=== PATIENT | female | born 1985 | race Caucasian/White ===

== ENCOUNTER 2017-05-22 19:11 | Emergency (ER) | payer BC, MEDICAID ==
[~2017-05-22] VITALS: Ht 154.9 cm; Wt 79.9 kg
[~2017-05-22 19:11] MED LIST: ACHD5005 PO; FERR-57; FERR325T74 PO; IBP600T1 PO; NORE1TAB40 PO; PREN1TAB14 PO; PREN1TAB39
[2017-05-22] MEDS ORDERED: LISD30CA3 (20:17)
[2017-05-22] MEDS ORDERED: IBUPROFEN 800 MG (MOTRIN) TAB PO STA (21:41)
--- NOTE | 2017-05-22 21:46 | ED Syncope ---
General Chief Complaint: Dizziness/Syncope Stated Complaint: PAST OUT DIZZY INJ HEAD Nursing Triage Note: patient reports passing out shortly after 1800 today. patient reports having history of passing out before. patient denies n/v/d or vision changes. patient reports headache after hitting head. patient ambulated independently. patient reports having sinus issues recenlty Source of Information: Patient, Spouse Exam Limitations: No Limitations History of Present Illness Time Seen by Provider: 21:33 Initial Comments Patient was ER by private conveyance with a primary complaint of just around 6: 00 this evening she was walking into the kitchen not feeling well recently had a head cold with rhinorrhea and stuffed up nose and ears and she was looking at her phone and had a frontal headache. She put her head and her front of her head and then promptly fell backwards landing against the door than the floor hitting the back of her head. She was unconscious for less than a minute according to her spouse who witnessed the fall. She says this happened before about 5 years ago and she was worked up and told it was something to do with her blood pressure but should really understand that they had completely good explanation at the time. Patient had no nausea, blurry vision, double vision, for the headache. She is not taking anything for the pain in her head. She feels a small goose egg on the back of her left occiput. She is able walk in to the ER. Loss of Consciousness: Brief (Seconds) Allergies and Home Medications Allergies Coded Allergies: No Known Drug Allergies (Verified , 10/27/07) Home Medications Lisdexamfetamine Dimesylate 30 Mg Capsule, (Reported) Constitutional: No chills, No diaphoresis EENTM: blurred vision (just prior to fall), No ear discharge, No ear pain, No double vision Respiratory: No cough, No short of breath Cardiovascular: No chest pain, No Hx of Intervention, No palpitations Gastrointestinal: No abdominal pain, No constipation, No diarrhea, No nausea, No vomiting Genitourinary: No discharge, No dysuria, No frequency : No Control/STD Prophylaxis: Other (implanon) Musculoskeletal: No back pain, No joint pain Skin: No pruritus, No rash Psychiatric/Neurological: Denies Headache, Denies Numbness, Denies Paresthesia Past [place] Hx Patient Social History Alcohol Use: Denies Use Recreational Drug Use: No Smoking Status: Never a Smoker Recent Foreign Travel: No Contact w/Someone Who Travel: No Recent Infectious Disease Expo: No Immunizations Up To Date Tetanus Booster (TDap): Unknown PED Vaccines UTD: Yes Reproductive System Hx Reproductive Disorders: No Sexually Transmitted Disease: No HIV/AIDS: No Female Reproductive Disorders: Pelvic Inflammatory Dis HEENT Loss of Vision: Bilateral Hearing Impairment: Denies Blood Transfusions Adverse Reaction to a Blood Tr: No (2007) Physical Exam Vital Signs Vital Sign - Last 12Hours 05/22/17 20:14 Temp 98.2 Pulse 76 Resp 18 B/P (MAP) 122/83 Pulse Ox 98 Capillary Refill : Less Than 3 Seconds General Appearance: No Apparent Distress, WD/WN HEENT: PERRL/EOMI, Pharyngeal Erythema, Tonsillar Enlargement, Other (nasal congestion and clear effusion bilateral TMs) Neck: Full Range of Motion, Normal Inspection, Non Tender, Supple Cardiovascular: Regular Rate, Rhythm, No Edema, No Murmur, Normal Peripheral Pulses Respiratory: Chest Non Tender, Lungs Clear, Normal Breath Sounds Gastrointestinal: Normal Bowel Sounds, No Organomegaly, Non Tender, Soft Back: Normal Inspection, No CVA Tenderness, No Vertebral Tenderness Extremities: Normal Capillary Refill, Normal Inspection, No Calf Tenderness Neurologic/Psychiatric: Alert, Oriented x3, No Motor/Sensory Deficits, Normal 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, 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 Norm as Tested Cranial Nerves: Normal Hearing, Normal Speech, PERRL Coordination/Gait: Normal Gait, Negative Romberg's Sign Motor/Sensory: No Motor Deficit, No Sensory Deficit Skin: Normal Color, Warm/Dry Lymphatic: No Adenopathy Progress/Results/Core Measures Results/Orders Lab Results Laboratory Tests Test 05/22/17 21:39 05/22/17 21:44 Range/Units Urine Color YELLOW Urine Clarity CLEAR Urine pH 6.5 5-9 Urine Specific [place] 1.010 L 1.016-1.022 Urine Protein NEGATIVE NEGATIVE Urine Glucose (UA) NEGATIVE NEGATIVE Urine Ketones NEGATIVE NEGATIVE Urine Nitrite NEGATIVE NEGATIVE Urine Bilirubin NEGATIVE NEGATIVE Urine Urobilinogen NORMAL NORMAL MG/DL Urine Leukocyte Esterase NEGATIVE NEGATIVE Urine RBC (Auto) 2+ H NEGATIVE Urine RBC 0-2 /HPF Urine WBC 0-2 /HPF Urine Squamous Epithelial Cells 2-5 /HPF Urine Crystals NONE /LPF Urine Bacteria TRACE /HPF Urine Casts NONE /LPF Urine Mucus NEGATIVE /LPF Urine Culture Indicated NO Urine Test NEGATIVE NEGATIVE Urine Opiates Screen NEGATIVE NEGATIVE Urine Oxycodone Screen NEGATIVE NEGATIVE Urine Methadone Screen NEGATIVE NEGATIVE Urine Propoxyphene Screen NEGATIVE NEGATIVE Urine Barbiturates Screen NEGATIVE NEGATIVE Ur Tricyclic Antidepressants Screen NEGATIVE NEGATIVE Urine Phencyclidine Screen NEGATIVE NEGATIVE Urine Amphetamines Screen POSITIVE H NEGATIVE Urine Methamphetamines Screen NEGATIVE NEGATIVE Urine Benzodiazepines Screen NEGATIVE NEGATIVE Urine Cocaine Screen NEGATIVE NEGATIVE Urine Cannabinoids Screen NEGATIVE NEGATIVE White Blood Count 6.5 4.3-11.0 10^3/uL Red Blood Count 4.67 4.35-5.85 10^6/uL Hemoglobin 13.5 11.5-16.0 G/DL Hematocrit 39 35-52 % Mean Corpuscular Volume 84 80-99 FL Mean Corpuscular Hemoglobin 29 25-34 PG Mean Corpuscular Hemoglobin Concent 34 32-36 G/DL Red Cell Distribution Width 12.2 10.0-14.5 % Platelet Count 226 130-400 10^3/uL Mean Platelet Volume 11.7 H 7.4-10.4 FL Neutrophils (%) (Auto) 71 42-75 % Lymphocytes (%) (Auto) 21 12-44 % Monocytes (%) (Auto) 6 0-12 % Eosinophils (%) (Auto) 2 0-10 % Basophils (%) (Auto) 0 0-10 % Neutrophils # (Auto) 4.6 1.8-7.8 X 10^3 Lymphocytes # (Auto) 1.4 1.0-4.0 X 10^3 Monocytes # (Auto) 0.4 0.0-1.0 X 10^3 Eosinophils # (Auto) 0.1 0.0-0.3 10^3/uL Basophils # (Auto) 0.0 0.0-0.1 10^3/uL Sodium Level 141 135-145 MMOL/L Potassium Level 4.1 3.6-5.0 MMOL/L Chloride Level 106 98-107 MMOL/L Carbon Dioxide Level 24 21-32 MMOL/L Anion Gap 11 5-14 MMOL/L Blood Urea Nitrogen 11 7-18 MG/DL Creatinine 0.62 0.60-1.30 MG/DL Estimat Glomerular Filtration Rate > 60 BUN/Creatinine Ratio 18 Glucose Level 90 70-105 MG/DL Calcium Level 9.5 8.5-10.1 MG/DL Magnesium Level 2.0 1.8-2.4 MG/DL Total Bilirubin 1.0 0.1-1.0 MG/DL Aspartate Amino Transf (AST/SGOT) 19 5-34 U/L Alanine Aminotransferase (ALT/SGPT) 22 0-55 U/L Alkaline Phosphatase 76 40-136 U/L Total Protein 7.0 6.4-8.2 GM/DL Albumin 4.1 3.2-4.5 GM/DL Serum Alcohol < 10 <10 MG/DL My Orders Orders - ROMYNANCY Alcohol (05/22/17 21:41) Cbc With Automated Diff (05/22/17 21:41) Comprehensive Metabolic Panel (05/22/17 21:41) Drug Screen Stat (Urine) (05/22/17 21:41) Hcg,Qualitative Urine (05/22/17 21:41) Magnesium (05/22/17 21:41) Ua Culture If Indicated (05/22/17 21:41) Chest Pa/Lat (2 View) (05/22/17 21:41) Ibuprofen Tablet (Motrin Tablet) (05/22/17 21:41) Vital Signs/I&O Vital Sign - Last 12Hours 05/22/17 05/22/17 20:14 22:23 Temp 98.2 Pulse 76 74 69 85 Resp 18 B/P (MAP) 122/83 Pulse Ox 98 Blood Pressure Mean: 96 Progress Note : Time: 22:51 Progress Note Consistent with vasovagal syncope which would be aggravated by her use of amphetamines as well as her viral URI. The orthostatic vitals were almost positive but not quite. Patient's tolerating by mouth's and O, do that. Diagnostic Imaging Diagonstic Imaging: Xray Plain Films/CT/US/NM/MRI: chest Comments No acute cardiopulmonary processes Reviewed: Reviewed by Me Departure Impression Impression: Primary Impression: URI (upper respiratory infection) Qualified Codes: J06.9 - Acute upper respiratory infection, unspecified; B97.89 - Other viral agents as the cause of diseases classified elsewhere Additional Impression: Syncope Qualified Codes: R55 - Syncope and collapse Disposition: 01 HOME, SELF-CARE Condition: Stable Departure-Patient Inst. Decision time for Depature: 22:53 Referrals: LAWSON WARREN DO (PCP) Primary Care Physician Patient Instructions: Syncope (Fainting) (DC) Add. Discharge Instructions: Drink copious amounts of fluids to get your system think back up. If you continue to have the symptoms should follow-up with her primary care physician. You can get some Flonase [id number] and apply 1 spray to each nostril twice a day for the next couple weeks to help. Nose out. You can also use loratadine or Claritin or Zyrtec to help with your urinary symptoms. When you' re getting up from a seated or lying position make sure you stand for a few seconds before taking off to help reduce her risk of recurrent passing out. All discharge instructions reviewed with patient and/or family. Voiced understanding. Copy Copies To 1: LAWSON WARREN TITUS J May 22, 2017 21:46
[2017-05-22 21:49] LABS: BILIRUBIN,URINE NEGATIVE (NEGATIVE); KETONES,URINE NEGATIVE (NEGATIVE); LEUKOCYTE ESTERASE ,URINE NEGATIVE (NEGATIVE); NITRITE,URINE NEGATIVE (NEGATIVE); PH,URINE 6.5 (5-9); PROTEIN,URINE NEGATIVE (NEGATIVE); UROBILINOGEN,URINE NORMAL (NORMAL)
[2017-05-22 21:54] LABS: BASOPHILS % (AUTO) 0 % (0-10); EOSINOPHILS # (AUTO) 0.1 10^3/uL (0.0-0.3); EOSINOPHILS % (AUTO) 2 % (0-10); LYMPHOCYTES # (AUTO) 1.4 X 10^3 (1.0-4.0); LYMPHOCYTES % (AUTO) 21 % (12-44); MEAN CORPUSCULAR HEMOGLOBIN 29 PG (25-34); MEAN CORPUSCULAR HGB CONC 34 G/DL (32-36); MEAN CORPUSCULAR VOLUME 84 FL (80-99); MEAN PLATELET VOLUME 11.7 FL (7.4-10.4); MONOCYTES # (AUTO) 0.4 X 10^3 (0.0-1.0); MONOCYTES % (AUTO) 6 % (0-12); NEUTROPHILS # (AUTO) 4.6 X 10^3 (1.8-7.8); NEUTROPHILS % (AUTO) 71 % (42-75); PLATELET COUNT 226 10^3/uL (130-400); RED BLOOD COUNT 4.67 10^6/uL (4.35-5.85); RED CELL DISTRIBUTION WIDTH 12.2 % (10.0-14.5); WHITE BLOOD COUNT 6.5 10^3/uL (4.3-11.0)
[2017-05-22 22:00] LABS: WBC,URINE 0-2 /HPF
[2017-05-22 22:15] LABS: ALANINE AMINOTRANSFERASE 22 U/L (0-55); ALBUMIN 4.1 GM/DL (3.2-4.5); ALCOHOL < 10 MG/DL (<10); ANION GAP 11 MMOL/L (5-14); ASPARTATE AMINO TRANSFERASE 19 U/L (5-34); BLOOD UREA NITROGEN 11 MG/DL (7-18); BUN/CREATININE RATIO 18; CALCIUM 9.5 MG/DL (8.5-10.1); CARBON DIOXIDE 24 MMOL/L (21-32); CHLORIDE 106 MMOL/L (98-107); CREATININE SERUM 0.62 MG/DL (0.60-1.30); GFR ESTIMATED > 60; GLUCOSE 90 MG/DL (70-105); POTASSIUM 4.1 MMOL/L (3.6-5.0); SODIUM 141 MMOL/L (135-145)
[2017-05-22 23:13] VITALS: BP 124/87
--- NOTE | 2017-05-23 08:18 | Diagnostic Imaging Report ---
INDICATION: Syncope. Trauma to the head. COMPARISON: None FINDINGS: Frontal and lateral views of the chest demonstrate normal heart size and pulmonary vascularity. The lungs are clear. There are no signs of infiltrate, pleural effusions or pneumothoraces. The visualized osseous structures show no acute abnormalities. IMPRESSION: 1. No acute process. No signs of infiltrates, effusions or pneumothoraces. Dictated by: Dictated on workstation # [id number]
--- OUTSIDE RECORDS SUMMARY | 2017-05-23 12:05 | XMS REPORT | Continuity of Care Document ---
Author Author [facility] Organization [facility] Address Unknown Phone Unavailable Allergies Medications Problems Date Dx Coded Attending Type Code Diagnosis Diagnosed By 05/29/2014 LAICE SEBASTIAN APRN 625.9 PELVIC PAIN 05/29/2014 ALICE SEBASTIAN APRN V74.5 STD SCREEN 05/29/2014 ALICE SEBASTIAN APRN 625.9 PELVIC PAIN 05/29/2014 ALICE SEBASTIAN APRN V74.5 STD SCREEN 07/01/2014 ALICE SEBASTIAN APRN 690.10 SEBORRHEIC DERMATITIS UNSPECIFIED 07/01/2014 ALICE SEBASTIAN APRN 787.02 NAUSEA ALONE 07/01/2014 ALICE SEBASTIAN APRN 789.00 ABDOMINAL PAIN UNSPECIFIED SITE Procedures Code [place] [address] CULTURE UROGENITAL 05/29/2014 74705 GC/CHLAM PROBE (STATE) 05/29/2014 94737 UA W/ CULTURE IF INDICATED 05/29/2014 71966 TEST, URINE (IN-HOUSE) 05/29/2014 90550 TRICHOMONAS (IN-HOUSE) 05/29/2014 85902 ROUTINE VENIPUNCTURE 07/01/2014 [id number] GFR CALC (RESULT ONLY) 07/01/2014 39826 CMP 07/01/2014 Results Encounters ACCT No. Visit Date/Time Discharge Status Pt. Type Provider Facility Loc./Unit Complaint [id number] 02/13/2013 08:02:00 2012 18:25:00 DIS Inpatient [id number] 02/07/2013 11:54:00 2012 23:59:59 CLS Outpatient [id number] 07/01/2014 10:47:00 07/01/2014 23: 59:59 CLS Outpatient ALICE SEBASTIAN APRN [id number] 05/29/2014 10:25:00 05/29/2014 23: 59:59 CLS Outpatient ALICE SEBASTIAN APRN
== END 2017-05-22 23:12 | disposition home or self-care (01) ==
LOC: EDUNIT# 19:11 → ER 19:14
DX: J06.9 Acute upper respiratory infection, unspecified (principal); R55 Syncope and collapse
CPT/HCPCS: 36415; 71020; 80053; 80306; 80320; 81000; 83735; 84703; 85025; 99283

== ENCOUNTER → 2020-07-07 | Outpatient (CLI) | payer BC ==
[~2020-07-07] MED LIST changes: +LISD30CA3
--- NOTE | 2020-07-07 11:24 | Diagnostic Imaging Report ---
Indication: Right shoulder pain. Time of exam: 11:04 AM 3 views of the right shoulder were obtained. Glenohumeral and acromioclavicular alignment are normal. Acromiohumeral space is normal. No fracture or dislocation is seen. Impression: No acute bony abnormality is detected. Dictated by: Dictated on workstation # [id number]
== END ==
LOC: RAD 10:44
PROVIDERS: ATTEND Nurse Practitioner Family
DX: M25.511 Pain in right shoulder (principal)
CPT/HCPCS: 73030

== ENCOUNTER → 2020-07-14 | Outpatient (CLI) | payer BC ==
[~2020-07-14] VITALS: Ht 157.5 cm; Wt 105.5 kg
[~2020-07-14] MED LIST changes: +GADOBUTROL 7.5 MMOL/7.5 ML (GADAVIST) VIAL IV ONE; +IOHEXOL 300 MG/ML 50 ML (OMNIPAQUE 300) VIAL IV ONE
--- NOTE | 2020-07-14 12:03 | Diagnostic Imaging Report ---
PROCEDURE: MRI upper extremity any joint with contrast right. TECHNIQUE: Multiplanar, multisequence contrast-enhanced MRI of the right upper extremity was accomplished. INDICATION: Right shoulder pain after throwing axis. Superior glenoid labrum lesion. COMPARISON: Radiographs from 07/07/2020 FINDINGS: No acute fracture is seen in the right shoulder. There is motion artifact on multiple sequences, resulting in suboptimal evaluation. There is contrast in the joint, with capsule disruption at the posterior axillary pouch as well as along the subscapularis. Minimal backflow of contrast is seen in the anterior soft tissues. The supraspinatus, infraspinatus, subscapularis, and teres minor tendons appear intact. There is no muscular atrophy. The long head of the biceps tendon is normal in course and signal. There is irregular signal concerning for a small tear at the superior glenoid labrum which appears to extend anteriorly (image 8 series 7 and image 12 series 3). No para labral cyst is seen. There are mild degenerative changes in the acromioclavicular joint. The acromion has a curved undersurface. The coracoclavicular and coracoacromial ligaments appear intact. No focal muscular atrophy is seen. No masses or fluid collections are seen. IMPRESSION: 1. Small tear at the superior anterior glenoid labrum. 2. No high-grade partial-thickness or full-thickness tears are seen in the right rotator cuff. Dictated by: Dictated on workstation # [id number]
--- NOTE | 2020-07-14 13:00 | Diagnostic Imaging Report ---
INDICATION: Right shoulder injection for MRI INDICATION: Shoulder pain Following aseptic preparation of the skin and administration of local anesthesia a 22-gauge needle was advanced into the glenohumeral joint using fluoroscopic guidance. 25.9 seconds of fluoroscopy time was utilized. Subsequently a solution of sodium chloride, Omnipaque 240 Gadavist was infused. The patient tolerate the procedure well and was sent to the MR suite in good condition. IMPRESSION: There has been a successful injection of the right shoulder joint. MRI is pending for further study. Dictated by: Dictated on workstation # [id number]
== END ==
LOC: RAD 10:00
PROVIDERS: ATTEND Nurse Practitioner
DX: S43.431A Superior glenoid labrum lesion of right shoulder, initial encounter (principal); X58.XXXA Exposure to other specified factors, initial encounter
CPT/HCPCS: 23350; 73040; 73219

== ENCOUNTER → 2020-10-09 | Outpatient (CLI) | payer BC, OTHER ==
[~2020-10-09] MED LIST changes: -GADOBUTROL 7.5 MMOL/7.5 ML (GADAVIST) VIAL IV ONE; -IOHEXOL 300 MG/ML 50 ML (OMNIPAQUE 300) VIAL IV ONE
== END ==
LOC: LABNPT 06:27
PROVIDERS: ATTEND Family Medicine
DX: Z20.822 Contact with and (suspected) exposure to COVID-19 (principal)
CPT/HCPCS: 87635